=== PATIENT | male | born 1985 | race Caucasian/White ===

== ENCOUNTER 2016-10-10 10:47 | Emergency (ER) | payer BC, OTHER ==
[2016-10-10] MEDS ORDERED: OXYCODONE-ACETAMINOPHEN 5-325 MG TABLET PO ONE (11:08)
--- NOTE | 2016-10-10 11:35 | RADIOLOGY REPORT (SQ) ---
EXAM DESCRIPTION: SHOULDER RIGHT 2 OR MORE VIEWS COMPLETED DATE/TIME: 10/10/2016 11:27 am REASON FOR STUDY: shoulder pain, pt states its dislocated COMPARISON: None. NUMBER OF VIEWS: Three views. TECHNIQUE: Internal rotation, external rotation, and Y view images acquired of the right shoulder. LIMITATIONS: None. FINDINGS: MINERALIZATION: Normal. BONES: No acute fracture or dislocation. Surgical hardware in the glenoid. No worrisome bone lesion s. JOINTS: No dislocation. VISUALIZED LUNGS AND RIBS: No pneumothorax. No rib fracture. SOFT TISSUES: No radiopaque foreign body. OTHER: No other significant finding. IMPRESSION: SURGICAL CHANGES WITH HARDWARE IN THE GLENOID. NO OTHER SIGNIFICANT FINDINGS. TECHNICAL DOCUMENTATION: JOB ID: [id number] [employer]- All Rights Reserved
[2016-10-10] MEDS ORDERED: IBUPROFEN 800 MG TABLET PO ONE (11:48)
--- NOTE | 2016-10-10 11:50 | ER Document Report ---
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 Patient denies any specific injury. Patient states that he does have to wrestle animals to get been vaccinated. Patient does have a previous history of right shoulder surgery. Associated Symptoms: Other - Shoulder joint pain Exacerbated by: Movement Relieved by: Denies Similar symptoms previously: Yes Recently seen / treated by doctor: No - ROS ROS below otherwise negative: Yes Systems Reviewed and Negative: Yes All other systems reviewed and negative - CARDIOVASCULAR Cardiovascular: DENIES: Chest pain - GASTROINTESTINAL Gastrointestinal: DENIES: Nausea - MUSCULOSKELETAL Musculoskeletal: REPORTS: Extremity pain. 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 IN LAST 30 DAYS: No - HEENT HEENT: Atraumatic, Normocephalic - NECK Neck: Normal Inspection - RESPIRATORY Respiratory: No Respiratory Distress O2 Sat by Pulse Oximetry: 99 - CARDIOVASCULAR Pulses: Normal: Radial - BACK Back: Normal Inspection - MUSCULOSKELETAL/EXTREMETIES Musculoskeletal/Extremeties: MAEW, FROM, Tender - right shoulder joint tenderness over anterior aspect of r humeral head, no dislocation, scars overlying joint - NEURO Level of Consciousness: Awake, Alert, Appropriate Motor/Sensory: No Motor Deficit - DERM Integumentary: Warm, Dry, No Rash Course - Re-evaluation Re-evalutation: 10/10/16 11:59 The patient has been informed that they may have pre-hypertension or hypertension based on a blood pressure reading in the emergency department. I recommend that patient call the primary care provider listed on their discharge instructions or a physician of their choice by this week to arrange follow-up for further evaluation of possible pre-hypertension or hypertension. 10/10/16 11:[address] Spring regarding pain management, advises nsaids and may consider tramadol 10/10/16 12:09 Patient refused any Motrin while here in the department stating that he has been taking it for 2 weeks without improvement of his symptoms. Started to become verbally aggressive. Patient advised that his shoulder is not dislocated and that we will immobilize the shoulder and give him an anti- inflammatory and something for pain. Patient insistent that he needs something else for his pain that he cannot just lie around and deal with this pain. Pt insistent that something needs to be done about his shoulder because his doctor yesterday told him it was dislocated. Advised that upon today's evaluation and x-ray report that was read by radiologist, his shoulder is not dislocated and he does not have any fracture involving the joint. Patient increasingly becoming agitated and verbally aggressive. Patient advised that his pain would be managed with either Tylenol or naproxen and that he would need to follow up with his orthopedic doctor. Pt refuses the tramadol prescription, refuses the sling. Security called to bedside. Pt angry states he doesn't want anything for pain or any immobilization. Pt ambulated out of the department with female. Nurse at bedside during exchange. - Vital Signs Vital signs: Temp Pulse Resp BP Pulse Ox 97.6 F 113 H 14 155/89 H 99 10/10/16 10:50 10/10/16 10:50 10/10/16 11:32 10/10/16 10:50 10/10/16 10:50 - Diagnostic Test Radiology reviewed: Image reviewed, Reports reviewed Discharge - Discharge Clinical Impression: Sprain of right shoulder Qualifiers: Encounter type: initial encounter Shoulder sprain type: unspecified sprain Qualified Code(s): S43.401A - Unspecified sprain of right shoulder joint, initial encounter Condition: Stable Disposition: HOME, SELF-CARE Instructions: Arthritis ([facility]), Shoulder Injury ([facility]) Additional Instructions: Return immediately for any new or worsening symptoms Followup with your primary care provider, call tomorrow to make a followup appointment Follow-up with orthopedic doctor for further evaluation, call today for an appointment Do not take the ultram and your klonopin together, take one medication or the other Prescriptions: Naproxen [Naprosyn 250 Nmg Tablet] 1 tab PO BID #14 tablet Tramadol HCl [Ultram 50 mg Tablet] 50 mg PO ASDIR PRN #8 tablet PRN Reason: Forms: Elevated Blood Pressure, Return to Work Referrals: [facility] [Provider Group] - Follow up as needed
[2016-10-10 12:09] VITALS: BP 171/134
== END 2016-10-10 12:09 | disposition home or self-care (01) ==
LOC: ER 10:47
DX: S43.401A Unspecified sprain of right shoulder joint, initial encounter (principal); X58.XXXA Exposure to other specified factors, initial encounter; M25.511 Pain in right shoulder; F17.200 Nicotine dependence, unspecified, uncomplicated; Z98.890 Other specified postprocedural states
CPT/HCPCS: 99283

== ENCOUNTER 2017-08-25 13:19 | Emergency (ER) | payer BC ==
--- NOTE | 2017-08-25 14:10 | ER Document Report ---
ED GI/ - General Chief Complaint: Testicular Pain Stated Complaint: TESTICULAR PAIN Time Seen by Provider: 08/25/17 13:35 Notes: 32-year-old male to emergency department chief complaint of suprapubic mostly left testicle pain. Has happened once before in the past. An ultrasound was negative. 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 Pain radiates to the bilateral testicles. No fever, chills, sweats. No vomiting. No other major issues at this time. Had ultrasound in the past and physical exam which was negative. Same symptoms at this time. TRAVEL OUTSIDE OF THE [place] IN LAST 30 DAYS: No - Related Data Allergies/Adverse Reactions: No Known Allergies Allergy (Verified 08/25/17 13:21) Past Medical History - General Information source: Patient - Social History Smoking Status: Current Every Day Smoker Chew tobacco use (# tins/day): No Frequency of alcohol use: None Drug Abuse: None Lives with: Spouse/Significant other Family History: Reviewed & Not Pertinent Patient has suicidal ideation: No Patient has homicidal ideation: No - Past Medical History Cardiac Medical History: Reports: None Renal/ Medical History: Denies: Hx Peritoneal Dialysis Past Surgical History: Reports: Hx Orthopedic Surgery Review of Systems - Review of Systems Constitutional: No symptoms reported EENT: No symptoms reported Cardiovascular: No symptoms reported Respiratory: No symptoms reported Gastrointestinal: Abdominal pain, Other - Mild lower suprapubic abdominal discomfort.. denies: Diarrhea, Nausea Genitourinary: No symptoms reported Male Genitourinary: See HPI, Testicular pain. denies: Penile discharge Musculoskeletal: No symptoms reported Skin: No symptoms reported Hematologic/Lymphatic: No symptoms reported Neurological/Psychological: No symptoms reported Physical Exam - Vital signs Vitals: Temp Pulse Resp BP Pulse Ox 97.5 F 80 20 128/71 H 96 08/25/17 13:37 08/25/17 13:37 08/25/17 13:37 08/25/17 13:37 08/25/17 13:37 Interpretation: Normal - General General appearance: Appears well, Alert - HEENT Head: Normocephalic, Atraumatic Eyes: Normal Pupils: PERRL - Respiratory Respiratory status: No respiratory distress Chest status: Nontender Breath sounds: Normal Chest palpation: Normal - Cardiovascular Rhythm: Regular Heart sounds: Normal auscultation Murmur: No - Abdominal Inspection: Normal Distension: No distension Bowel sounds: Normal Tenderness: Other - Suprapubic tenderness. There is no obvious inguinal hernias bilaterally. There is a normal-appearing scrotum Organomegaly: No organomegaly - Genitourinary Inspection: Normal Tenderness: No: Nontender Cremasteric reflex: Normal Scrotum: Normal - Back Back: Normal, Nontender - Extremities General upper extremity: Normal inspection, Nontender, Normal color, Normal ROM , Normal temperature General lower extremity: Normal inspection, Nontender, Normal color, Normal ROM , Normal temperature, Normal weight bearing. No: Alvin's sign - Neurological Neuro grossly intact: Yes Cognition: Normal Orientation: AAOx4 Mcdonald Coma Scale Eye Opening: Spontaneous Mcdonald Coma Scale Verbal: Oriented Mcdonald Coma Scale Motor: Obeys Commands Mcdonald Coma Scale Total: 15 Speech: Normal Motor strength normal: LUE, RUE, LLE, RLE Sensory: Normal - Psychological Associated symptoms: Normal affect, Normal mood - Skin Skin Temperature: Warm Skin Moisture: Dry Skin Color: Normal Course - Re-evaluation Re-evalutation: 08/25/17 15:19 Urinalysis unremarkable. Normal ultrasound. Normal blood work. Uncertain etiology symptoms. Could be an inguinal strain. Will refer to surgery for further testing. Find nothing acute at this time. 08/25/17 15:20 Laboratory 08/25/17 08/25/17 08/25/17 14:20 14:20 14:20 WBC 6.5 RBC 5.58 H Hgb 16.6 Hct 48.2 MCV 87 MCH 29.7 MCHC 34.4 RDW 15.8 H Plt Count 217 Seg Neutrophils % 69.9 Lymphocytes % 16.8 Monocytes % 9.8 Eosinophils % 3.3 Basophils % 0.2 Absolute Neutrophils 4.6 Absolute Lymphocytes 1.1 Absolute Monocytes 0.6 Absolute Eosinophils 0.2 Absolute Basophils 0.0 Sodium 144.7 Potassium 4.3 Chloride 102 Carbon Dioxide 28 Anion Gap 15 BUN 20 Creatinine 1.01 Est GFR ( Amer) > 60 Est GFR (Non-Af Amer) > 60 Glucose 78 Calcium 9.9 Urine Color YELLOW Urine Appearance CLEAR Urine pH 5.0 Ur Specific [place] 1.018 Urine Protein NEGATIVE Urine Glucose (UA) NEGATIVE Urine Ketones NEGATIVE Urine Blood NEGATIVE Urine Nitrite NEGATIVE Urine Bilirubin NEGATIVE Urine Urobilinogen NEGATIVE Ur Leukocyte Esterase NEGATIVE Urine WBC (Auto) 0 Urine RBC (Auto) 1 Urine Mucus (Auto) RARE Urine Ascorbic Acid NEGATIVE Scrotum Ultrasound 08/25/17 14:00 IMPRESSION: NORMAL SCROTAL ULTRASOUND. NO EVIDENCE OF TESTICULAR MASS OR TORSION. - Vital Signs Vital signs: Temp Pulse Resp BP Pulse Ox 97.5 F 80 20 128/71 H 96 08/25/17 13:37 08/25/17 13:37 08/25/17 13:37 08/25/17 13:37 08/25/17 13:37 - Laboratory Result Diagrams: 08/25/17 14:20 08/25/17 14:20 Laboratory results interpreted by me: 08/25/17 14:20 RBC 5.58 H RDW 15.8 H Discharge - Discharge Clinical Impression: Suprapubic abdominal pain, Testicular pain Condition: Good Disposition: HOME, SELF-CARE Instructions: Abdominal Pain ([facility]), Testicular Pain ([facility]) Prescriptions: Ibuprofen [Motrin 800 mg Tablet] 800 mg PO Q8H PRN 10 Days #30 tab PRN Reason: For Pain Scale 3-4 Tramadol HCl 50 mg PO TID PRN 5 Days #15 tablet PRN Reason: Referrals: FERNANDO FELIZ MD [ACTIVE STAFF] - Follow up in 1 week DARIO JACOBSEN DO [[facility]] - Follow up in 1 week
[2017-08-25 14:40] LABS: APPEARANCE,URINE CLEAR; BILIRUBIN,URINE NEGATIVE (NEGATIVE); COLOR,URINE YELLOW; GLUCOSE, URINE NEGATIVE (NEGATIVE); KETONES,URINE NEGATIVE (NEGATIVE); LEUKOCYTE ESTERASE,URINE NEGATIVE (NEGATIVE); NITRITE,URINE NEGATIVE (NEGATIVE); PROTEIN,URINE NEGATIVE (NEGATIVE); URINE SPECIFIC GRAVITY 1.018; UROBILINOGEN,URINE NEGATIVE mg/dL (<2.0)
[2017-08-25 14:45] LABS: ABSOLUTE EOSINOPHILS # (AUTO) 0.2 10^3/uL (0.0-0.6); ABSOLUTE LYMPHOCYTES (AUTO) 1.1 10^3/uL (0.5-4.7); ABSOLUTE MONOCYTES (AUTO) 0.6 10^3/uL (0.1-1.4); ABSOLUTE NEUT (AUTO) 4.6 10^3/uL (1.7-8.2); BASOPHILS % (AUTO) 0.2 % (0-2); EOSINOPHILS % (AUTO) 3.3 % (0-6); HEMATOCRIT 48.2 % (37.9-51.0); HEMOGLOBIN 16.6 g/dL (13.5-17.0); LYMPHOCYTES % (AUTO) 16.8 % (13-45); MEAN CORPUSCULAR HEMOGLOBIN 29.7 pg (27.0-33.4); MEAN CORPUSCULAR HGB CONC 34.4 g/dL (32.0-36.0); MEAN CORPUSCULAR VOLUME 87 fl (80-97); MONOCYTES % (AUTO) 9.8 % (3-13); PLATELET COUNT 217 10^3/uL (150-450); RED BLOOD COUNT 5.58 10^6/uL (4.35-5.55); RED CELL DISTRIBUTION WIDTH 15.8 % (11.5-14.0); SEGMENTED NEUTROPHILS % (AUTO) 69.9 % (42-78); TOTAL CELLS COUNTED % (AUTO) 100 %; WHITE BLOOD COUNT 6.5 10^3/uL (4.0-10.5)
[2017-08-25 14:53] LABS: ANION GAP 15 (5-19); BLOOD UREA NITROGEN 20 mg/dL (7-20); CALCIUM 9.9 mg/dL (8.4-10.2); CARBON DIOXIDE 28 mmol/L (22-30); CHLORIDE 102 mmol/L (98-107); GLUCOSE 78 mg/dL (75-110); POTASSIUM 4.3 mmol/L (3.6-5.0); SODIUM 144.7 mmol/L (137-145)
--- NOTE | 2017-08-25 15:11 | RADIOLOGY REPORT (SQ) ---
EXAM DESCRIPTION: U/S SCROTUM W/DOPPLER COMPLETED DATE/TIME: 08/25/2017 2:47 pm REASON FOR STUDY: left testicle pain COMPARISON: None. TECHNIQUE: Static and realtime reyes scale imaging of the scrotum and testes. Selected color Doppler and spectral images recorded to document blood flow. LIMITATIONS: None. FINDINGS: RIGHT: TESTICLE: Normal size. Normal echotexture. Normal blood flow. No mass. EPIDIDYMIS: Normal. HYDROCELE OR VARICOCELE: No. HERNIA OR EXTRA-TESTICULAR MASS: No. OTHER: No other significant finding. LEFT: TESTICLE: Normal size. Incidental note is made of few scattered microliths. Otherwise normal echote xture. Normal blood flow. No mass. EPIDIDYMIS: Normal. HYDROCELE OR VARICOCELE: No. HERNIA OR EXTRA-TESTICULAR MASS: No. OTHER: No other significant finding. IMPRESSION: NORMAL SCROTAL ULTRASOUND. NO EVIDENCE OF TESTICULAR MASS OR TORSION. TECHNICAL DOCUMENTATION: JOB ID: [id number] [employer] All Rights Reserved Reading location - IP/workstation name: [email or web address]
[2017-08-25 15:40] VITALS: BP 142/72
== END 2017-08-25 15:40 | disposition home or self-care (01) ==
LOC: ER 13:19
DX: R10.30 Lower abdominal pain, unspecified (principal); N50.812 Left testicular pain; N50.811 Right testicular pain; F17.200 Nicotine dependence, unspecified, uncomplicated
CPT/HCPCS: 36415; 76870; 80048; 81001; 85025; 93976; 99284